=== PATIENT | male | born 1985 | race Caucasian/White ===

== ENCOUNTER 2018-11-25 06:43 | Emergency (ER) | payer MEDICARE ==
[~2018-11-25] VITALS: Ht 177.8 cm; Wt 72.7 kg
[2018-11-25 06:47] VITALS: Ht 177.8 cm; Wt 72.7 kg
[2018-11-25] MEDS ORDERED: BUPRENORPHINE (06:48)
[2018-11-25 07:47] VITALS: BP 146/84
== END 2018-11-25 07:48 | disposition home or self-care (01) ==
LOC: D.ER 06:43
DX: F11.20 Opioid dependence, uncomplicated (principal)

== ENCOUNTER 2018-12-17 12:44 | Emergency (ER) | payer MEDICARE ==
[~2018-12-17] VITALS: Ht 177.8 cm; Wt 72.7 kg
[~2018-12-17 12:44] MED LIST: BUPRENORPHINE
[2018-12-17 12:49] VITALS: Ht 177.8 cm; Wt 72.7 kg
[2018-12-17] MEDS ORDERED: TORADOL10 MG PO (15:29)
[2018-12-17 15:37] VITALS: BP 125/84
== END 2018-12-17 15:38 | disposition home or self-care (01) ==
LOC: D.ER 12:44
DX: M25.511 Pain in right shoulder (principal)

== ENCOUNTER 2019-01-24 07:46 | Emergency (ER) | payer MEDICARE ==
[~2019-01-24] VITALS: Ht 177.8 cm; Wt 72.7 kg
[~2019-01-24 07:46] MED LIST changes: +TORADOL10 MG PO
[2019-01-24 07:50] VITALS: BP 136/77; Ht 177.8 cm; Wt 72.7 kg
[2019-01-24] MEDS ORDERED: BUPRENORPHIN-N1 EACH SL (07:53)
== END 2019-01-24 08:25 | disposition home or self-care (01) ==
LOC: D.ER 07:46
DX: F15.93 Other stimulant use, unspecified with withdrawal (principal)

== ENCOUNTER 2019-02-09 12:20 | Emergency (ER) | payer MEDICARE ==
[~2019-02-09] VITALS: Ht 177.8 cm; Wt 68.2 kg
[~2019-02-09 12:20] MED LIST changes: +BUPRENORPHIN-N1 EACH SL
[2019-02-09 12:27] VITALS: Ht 177.8 cm; Wt 68.2 kg
[2019-02-09] MEDS ORDERED: DILAUDID4 MG PO (12:57)
[2019-02-09 13:53] VITALS: BP 130/93
== END 2019-02-09 13:51 | disposition home or self-care (01) ==
LOC: D.ER 12:20
DX: T65.891A Toxic effect of other specified substances, accidental (unintentional), initial encounter (principal); T24.409A Corrosion of unspecified degree of unspecified site of unspecified lower limb, except ankle and foot, initial encounter; T32.0 Corrosions involving less than 10% of body surface; F17.220 Nicotine dependence, chewing tobacco, uncomplicated

== ENCOUNTER 2019-02-28 07:06 | Emergency (ER) | payer MEDICARE ==
[~2019-02-28] VITALS: Ht 177.8 cm; Wt 72.7 kg
[~2019-02-28 07:06] MED LIST changes: +DILAUDID4 MG PO
[2019-02-28 07:10] VITALS: Ht 177.8 cm; Wt 72.7 kg
[2019-02-28] MEDS ORDERED: DILAUDID4 MG PO (07:47)
[2019-02-28 08:00] VITALS: BP 142/89
== END 2019-02-28 07:59 | disposition home or self-care (01) ==
LOC: D.ER 07:06
DX: T24.002D Burn of unspecified degree of unspecified site of left lower limb, except ankle and foot, subsequent encounter (principal); T24.001D Burn of unspecified degree of unspecified site of right lower limb, except ankle and foot, subsequent encounter; X08.8XXD Exposure to other specified smoke, fire and flames, subsequent encounter

== ENCOUNTER 2019-05-21 10:28 | Emergency (ER) | payer MEDICARE ==
[~2019-05-21] VITALS: Ht 177.8 cm; Wt 70.5 kg
[2019-05-21 10:33] VITALS: Ht 177.8 cm; Wt 70.5 kg
[2019-05-21] MEDS ORDERED: ZOFRAN8 MG PO (13:05)
[2019-05-21] MEDS ORDERED: CATAPRES0.1 MG PO (13:05)
[2019-05-21 13:24] VITALS: BP 151/92
== END 2019-05-21 13:25 | disposition home or self-care (01) ==
LOC: D.ER 10:28
DX: F11.20 Opioid dependence, uncomplicated (principal)